=== PATIENT | female | born 1995 | race Caucasian/White ===

== ENCOUNTER 2018-09-22 15:33 | Inpatient (IN) | payer MEDICAID, OTHER ==
[2018-09-22] MEDS ORDERED: Sodium Chloride 0.9% 1,000 ML IV STA (15:49)
--- NOTE | 2018-09-22 15:55 | ED PDOC ---
HPI: Psych/Substance Abuse Time Seen by Provider: 09/22/18 15:43 Chief Complaint (Nursing): Psychiatric Evaluation Chief Complaint (Provider): Ingestion of Tramadol ED Caveat: Uncooperative History Per: EMS History/Exam Limitations: other (uncooperative) Current Symptoms Are (Timing): Still Present Additional Complaint(s): 23 year old female presents to the ED via EMS s/p ingestion of an unknown amount of tramadol an unknown amount of time ago after her and her boyfriend broke up. Due to her uncooperative nature, history is limited. PMD: none provided Past Medical History Reviewed: Unable To Obtain Vital Signs: Last Vital Signs Temp 97.2 F L 09/22/18 15:36 Pulse 125 H 09/22/18 15:36 Resp 16 09/22/18 15:36 BP 126/87 09/22/18 15:36 Pulse Ox 100 09/22/18 15:36 - Family History Family History: States: Unknown Family Hx - Allergies Allergies/Adverse Reactions: Allergies Allergy/AdvReac Type Severity Reaction Status Date / Time Unobtainable Allergy Verified 09/22/18 15:47 Review of Systems Review Of Systems: ROS cannot be obtained secondary to pt's inabilty to answer questions. Physical Exam - Reviewed Nursing Documentation Reviewed: Yes Vital Signs Reviewed: Yes - Physical Exam Appears: Positive for: No Acute Distress Head Exam: Positive for: ATRAUMATIC, NORMOCEPHALIC Skin: Positive for: Normal Color. Negative for: Rash Eye Exam: Positive for: Normal appearance, EOMI, PERRL ENT: Positive for: Normal ENT Inspection Neck: Positive for: Normal, Painless ROM, Supple Cardiovascular/Chest: Positive for: Tachycardia Respiratory: Positive for: Normal Breath Sounds. Negative for: Respiratory Distress Gastrointestinal/Abdominal: Positive for: Normal Exam, Soft. Negative for: Tenderness Back: Positive for: Normal Inspection Extremity: Positive for: Normal ROM. Negative for: Deformity, Swelling Neurologic/Psych: Positive for: Mood/Affect (uncooperative), Other (lethargic, but arousable and responsive to painful stimuli). Negative for: Motor/Sensory Deficits - Laboratory Results Result Diagrams: 09/22/18 15:58 09/22/18 15:58 - ECG O2 Sat by Pulse Oximetry: 100 (RA) Pulse Ox Interpretation: Normal Medical Decision Making Medical Decision Making: Time: 1548 Initial Impression: ingestion of unknown quantity of tramadol Initial Plan: --EKG --Acetaminophen --Alcohol serum --CMP --Drug screening --Salicylate --U-preg --U-dip --CBC with differential --Prothrombin time --CXR --IV fluids Medically stable for psychiatric admission Poison control consulted and in agreement Scribe Attestation: Documented by Kathie Montoya acting as a scribe for Timothy Peck MD. Provider Scribe Attestation: All medical record entries made by the Scribe were at my direction and personally dictated by me. I have reviewed the chart and agree that the record accurately reflects my personal performance of the history, physical exam, medical decision making, and the department course for this patient. I have also personally directed, reviewed, and agree with the discharge instructions and disposition. Disposition - Clinical Impression Clinical Impression: Depression, Suicide attempt - Patient ED Disposition Is Patient to be Admitted: Yes - Disposition Disposition Time: 18:12 Condition: FAIR Forms: vzaar ([place]) - Pt Status Changed To: Hospital Disposition Of: Inpatient - Admit Certification Admit to Inpatient:: After my assessment, the patient will require hosp italization for at least two midnights. This is because of the severity of symptoms shown, intensity of services needed, and/or the medical risk in this patient being treated as an outpatient. - POA Present On Arrival: None
[2018-09-22 16:02] LABS: BASO % 0.5 % (0.0-2.0); EOS # 0.1 K/uL (0.0-0.7); EOS % 0.9 % (0.0-4.0); HEMOGLOBIN 13.9 g/dL (12.0-16.0); LYMPH # 2.4 K/uL (1.0-4.3); LYMPH % 27.1 % (20.0-40.0); MEAN CELL VOLUME 91.8 fl (81.0-99.0); MEAN CORPUSCULAR HEMOGLOBIN 31.3 pg (27.0-31.0); MEAN CORPUSCULAR HGB CONC 34.1 g/dL (33.0-37.0); MEAN PLATELET VOLUME 8.4 fl (7.2-11.7); MONO # 0.8 K/uL (0.0-0.8); MONO % 8.6 % (0.0-10.0); NEUT # 5.6 K/uL (1.8-7.0); NEUT % 62.9 % (50.0-75.0); RBC 4.44 Mil/uL (3.80-5.20); RED CELL DISTRIBUTION WIDTH 12.7 % (11.5-14.5); WHITE BLOOD COUNT 8.9 K/uL (4.8-10.8)
[2018-09-22 16:14] LABS: INR 1.2; PROTHROMBIN TIME 13.1 Seconds (9.8-13.1)
[2018-09-22 16:20] LABS: ALB/GLOB RATIO 1.3 (1.0-2.1); ALBUMIN 4.9 g/dL (3.5-5.0); ALT/SGPT 34 U/L (9-52); AST/SGOT 33 U/L (14-36); BLOOD UREA NITROGEN 8 mg/dl (7-17); CALCIUM 9.7 mg/dL (8.4-10.2); GFR NON-AFRICAN AMERICAN > 60
[2018-09-22] MEDS ORDERED: Potassium Chloride 20 mEq 100 ML IVPB ONE (16:23)
[2018-09-22 16:29] LABS: PHENCYCLIDINE, UR NEGATIVE (NEGATIVE)
[2018-09-22 16:32] LABS: BARBITURATES, UR NEGATIVE (NEGATIVE); BENZODIAZEPINES, UR NEGATIVE (NEGATIVE); OPIATES, UR NEGATIVE (NEGATIVE)
[2018-09-22 16:50] LABS: ACETAMINOPHEN < 10.0 ug/ml (10.0-30.0); SALICYLATE < 1.0 mg/dl
[2018-09-22 20:31] VITALS: O2SAT 98
[2018-09-22] MEDS ORDERED: Magnesium Hydroxide Susp 30 ml UD PO PRN (21:42)
[2018-09-22] MEDS ORDERED: Alum-Mag Hydrox-Simethicone Susp (30 mL) PO PRN (21:42)
[2018-09-22] MEDS ORDERED: DiphenhydrAMINE 50 mg/ml Inj IM PRN (21:42)
--- NOTE | 2018-09-22 22:42 | PCM.BM ---
<Tiffanie Dominguez - Last Filed: 09/22/18 22:40> Treatment Plan Problems - Problems identified on initial assessmt Self Harm Date Initiated: 09/22/18 Time Initiated: 22:41 Assessment reference: NA Status: Active Hopelessness/Helplessness Date Initiated: 09/22/18 Time Initiated: 22:41 Assessment reference: NA Status: Active Altered Sleep Patterns Date Initiated: 09/22/18 Time Initiated: 22:42 Assessment reference: NA Status: Active Ineffective Coping Date Initiated: 09/22/18 Time Initiated: 22:43 Assessment reference: NA Status: Active Treatment assets and liabiliti Patient Assests: cooperative, self-reliant, ADL independent, physically healthy, negotiates basic needs, cognitively intact Patient Liabilities: poor support system, relationship conflicts - Milieu Protocol Maintain good personal hygiene: daily Encourage regular showers, other Remind patient to perform daily oral care (prn), other Assist patient to perform ADL's (prn) Conduct patient checks and document Observation sheet: Q15 minutes Maintain personal safety: every shift Educate patient to report safety concerns to staff, every shift Monitor environment for contraband/sharps Medication safety: Monitor for expected outcome, potential side effects: every shift, Assess barriers to learning: every shift, Assess readiness for medication education: every shift <Alecia Brady - Last Filed: 09/25/18 10:38> Treatment assets and liabiliti Patient Assests: adapts well, cooperative, self-reliant (pt. dependent on childrens father and his family) Patient Liabilities: poor support system, relationship conflicts Family Contact Family involvement: Famliy/SO not involved Family contact: Patient declines to allow family contact at present (Pt. reports limited family/social supports. Pt. reports being visited by bf's family but declined to sign consent for them.) - Goals for Treatment Patient goals for treatment: Patient to continue stabilization on 3NP through medication management and group/supportive therapy to address sxs of depression and eliminate SI. Patient to be encouraged to attend groups regularly to promote self-awareness, coping skills, and improve insight, compliance, and self-esteem. Patient to be provided with referral for appropriate level of aftercare to reduce risk of future hospitalizations and ensure safety in the community. Pt. identified wanting to get better to be able to care for her children and bfs family upon discharge. Pt. open to the benefits of outpatient therapy but somewhat ambivalent regarding medication management. Discharge/Continuing Care - Education Needs Education Needs: Patient Medication, Patient Diagnosis/Disease Process, Patient Coping Skills, Patient Community resources, Patient Aftercare Safety Plan - Discharge Discharge Criteria: Tolerates medication w/o severe side effects, Free of Suicidal thoughts, Normal sleep pattern Discharge to:: Home, With Family (pt. resides with bf who recently ended the relationship ; pt. reports plan to return) - Treatment Team Participation Patient/Family/SO Statement: 09/25/18 10:40 Patient attended tx team on 09/24 to discuss progress on 3NP and tx goals. Pt. reported improvement in sxs of depression since admission. Pt. reported better sleep. Pt. continued to report feelings of sadness, guilt, and anger. Pt. denied SI/HI and was able to contract for safety. Pt. presented with depressed affect and fair eye contact. Pt. presents as ambivalent regarding precursors to hospitalization. Pt. superficially motivated for tx but agreeable to outpatient mental health referrals. Pt. somewhat socially withdrawn but visible on 3NP and is able to appropriately socialize with peers with prompting. Discussed with Family/SO: No Was Patient/Family/SO present at Treatment Team Meeting: Yes <Vianca Carroll - Last Filed: 09/26/18 16:39> - Diagnosis (1) Depression Status: Acute Interventions: psychotherapy, pharmacotherapy 09/26/18 16:38
--- NOTE | 2018-09-23 10:00 | RAD ---
Date of service: 09/22/2018 HISTORY: cough COMPARISON: No prior. FINDINGS: LUNGS: No acute pulmonary disease appreciated. Rounded density at the inferior right chest in the plane of the 5th intercostal space likely reflects nipple. PLEURA: No significant pleural effusion identified, no pneumothorax apparent. CARDIOVASCULAR: No aortic atherosclerotic calcification present. Normal cardiac size. No pulmonary vascular congestion. OSSEOUS STRUCTURES: No significant abnormalities. VISUALIZED UPPER ABDOMEN: Normal. OTHER FINDINGS: None. IMPRESSION: No acute cardiopulmonary disease appreciable.
[2018-09-23 10:15] LABS: BLOOD UREA NITROGEN 6 mg/dl (7-17); CALCIUM 9.1 mg/dL (8.4-10.2); GFR NON-AFRICAN AMERICAN > 60; HDL CHOLESTEROL 39 MG/DL (30-70); LDL CHOLESTEROL 56 mg/dL (0-129); T4 8.66 ug/dl (5.5-11.0)
--- NOTE | 2018-09-23 12:07 | CP.PCM.CON ---
History of Present Illness - History of Present Illness History of Present Illness: 23 yo female admittedly took 6 tabs of Tramadol after breaking up with her boyfriend. Review of Systems - Review of Systems All systems: reviewed and no additional remarkable complaints except (aside from those mentioned above, 12 point system review were negative by me) Past Patient History - Past Social History Smoking Status: Never Smoked Chewing Tobacco Use: No Cigar Use: No Alcohol: Occasional Drugs: Denies - CARDIAC Hx Cardiac Disorders: No - PULMONARY Hx Respiratory Disorders: No Hx Tuberculosis: No - NEUROLOGICAL Hx Neurological Disorder: No HX Cerebrovascular Accident: No Hx Seizures: No - HEENT Hx HEENT Problems: No - RENAL Hx Chronic Kidney Disease: No - ENDOCRINE/METABOLIC Hx Endocrine Disorders: No - HEMATOLOGICAL/ONCOLOGICAL Hx Blood Disorders: No Hx Cancer: No Hx Human Immunodeficiency Virus (HIV): No - INTEGUMENTARY Hx Dermatological Problems: No - MUSCULOSKELETAL/RHEUMATOLOGICAL Hx Musculoskeletal Disorders: No - GASTROINTESTINAL Hx Gastrointestinal Disorders: No - GENITOURINARY/GYNECOLOGICAL Hx Genitourinary Disorders: No Hx Sexually Transmitted Disorders: No - PSYCHIATRIC Hx Depression: Yes Hx Emotional Abuse: Yes Hx Substance Use: No - SURGICAL HISTORY Hx Surgeries: No - ANESTHESIA Hx Anesthesia: No Meds Allergies/Adverse Reactions: Allergies Allergy/AdvReac Type Severity Reaction Status Date / Time No Known Allergies Allergy Verified 09/22/18 23:22 - Medications Medications: Current Medications Acetaminophen (Tylenol 325mg Tab) 650 mg PO Q4 PRN PRN Reason: pain 4-7 Last Admin: 09/23/18 11:52 Dose: 650 mg Al Hydrox/Mg Hydrox/Simethicone (Maalox Plus 30 Ml) 30 ml PO Q4 PRN PRN Reason: Dyspepsia Diphenhydramine HCl (Benadryl) 50 mg IM Q6 PRN PRN Reason: Extrapyramidal S/S Unable PO Diphenhydramine HCl (Benadryl) 50 mg PO Q6 PRN PRN Reason: Extrapyramidal Symptoms Haloperidol (Haldol) 5 mg PO Q4 PRN PRN Reason: Agitation Haloperidol Lactate (Haldol) 5 mg IM Q4 PRN PRN Reason: Agitation, Unable to Take PO Lorazepam (Ativan) 2 mg IM Q8 PRN PRN Reason: Anxiety/Agitation,Unable PO Lorazepam (Ativan) 1 mg PO Q6 PRN PRN Reason: Anxiety/Agitation Magnesium Hydroxide (Milk Of Magnesia) 30 ml PO HS PRN PRN Reason: Constipation Trazodone HCl (Desyrel) 50 mg PO HS PRN PRN Reason: Sleep Last Admin: 09/22/18 22:34 Dose: 50 mg Physical Exam - Constitutional Appears: No Acute Distress - Head Exam Head Exam: ATRAUMATIC - Eye Exam Eye Exam: absent: Scleral icterus - ENT Exam ENT Exam: Mucous Membranes Moist - Neck Exam Neck exam: Negative for: Meningismus - Respiratory Exam Respiratory Exam: absent: Rales, Rhonchi, Wheezes, Respiratory Distress - Cardiovascular Exam Cardiovascular Exam: REGULAR RHYTHM, +S1, +S2 - GI/Abdominal Exam GI & Abdominal Exam: Soft. absent: Tenderness - Rectal Exam Rectal Exam: Deferred - Extremities Exam Extremities exam: Negative for: pedal edema - Back Exam Back exam: NORMAL INSPECTION - Neurological Exam Neurological exam: Alert, Oriented x3 - Psychiatric Exam Psychiatric exam: Normal Affect - Skin Skin Exam: Dry, Intact Results - Vital Signs Recent Vital Signs: Last Vital Signs Temp 98.1 F 09/23/18 09:00 Pulse 82 09/23/18 09:00 Resp 18 09/23/18 09:00 BP 100/64 09/23/18 09:00 Pulse Ox 98 09/22/18 20:27 - Labs Result Diagrams: 09/22/18 15:58 09/23/18 09:30 Labs: Laboratory Results - last 24 hr 09/22/18 09/22/18 09/22/18 15:58 15:58 15:58 WBC 8.9 RBC 4.44 Hgb 13.9 Hct 40.8 MCV 91.8 MCH 31.3 H MCHC 34.1 RDW 12.7 Plt Count 287 MPV 8.4 Neut % (Auto) 62.9 Lymph % (Auto) 27.1 [place] % (Auto) 8.6 Eos % (Auto) 0.9 Baso % (Auto) 0.5 Neut # (Auto) 5.6 Lymph # (Auto) 2.4 [place] # (Auto) 0.8 Eos # (Auto) 0.1 Baso # (Auto) 0.0 PT INR Sodium 140 Potassium 3.1 L Chloride 102 Carbon Dioxide 21 L Anion Gap 20 BUN 8 Creatinine 0.7 Est GFR ( Amer) > 60 Est GFR (Non-Af Amer) > 60 Random Glucose 160 H Hemoglobin A1c Calcium 9.7 Total Bilirubin 0.5 AST 33 ALT 34 Alkaline Phosphatase 75 Total Protein 8.5 H Albumin 4.9 Globulin 3.6 Albumin/Globulin Ratio 1.3 Triglycerides Cholesterol LDL Cholesterol Direct HDL Cholesterol Thyroxine (T4) TSH 3rd Generation Salicylates < 1.0 Urine Opiates Screen Urine Methadone Screen Acetaminophen < 10.0 L Ur Barbiturates Screen Ur Phencyclidine Scrn Ur Amphetamines Screen U Benzodiazepines Scrn U Oth Cocaine Metabols U Cannabinoids Screen Alcohol, Quantitative 128 H 09/22/18 09/22/18 09/23/18 15:58 16:03 09:30 WBC RBC Hgb Hct MCV MCH MCHC RDW Plt Count MPV Neut % (Auto) Lymph % (Auto) [place] % (Auto) Eos % (Auto) Baso % (Auto) Neut # (Auto) Lymph # (Auto) [place] # (Auto) Eos # (Auto) Baso # (Auto) PT 13.1 INR 1.2 Sodium 140 Potassium 4.1 Chloride 105 Carbon Dioxide 25 Anion Gap 14 BUN 6 L Creatinine 0.6 L Est GFR ( Amer) > 60 Est GFR (Non-Af Amer) > 60 Random Glucose 97 Hemoglobin A1c Calcium 9.1 Total Bilirubin AST ALT Alkaline Phosphatase Total Protein Albumin Globulin Albumin/Globulin Ratio Triglycerides 84 Cholesterol 92 LDL Cholesterol Direct 56 HDL Cholesterol 39 Thyroxine (T4) 8.66 TSH 3rd Generation 1.42 Salicylates Urine Opiates Screen Negative Urine Methadone Screen Negative Acetaminophen Ur Barbiturates Screen Negative Ur Phencyclidine Scrn Negative Ur Amphetamines Screen Negative U Benzodiazepines Scrn Negative U Oth Cocaine Metabols Negative U Cannabinoids Screen Negative Alcohol, Quantitative 09/23/18 09:30 WBC RBC Hgb Hct MCV MCH MCHC RDW Plt Count MPV Neut % (Auto) Lymph % (Auto) [place] % (Auto) Eos % (Auto) Baso % (Auto) Neut # (Auto) Lymph # (Auto) [place] # (Auto) Eos # (Auto) Baso # (Auto) PT INR Sodium Potassium Chloride Carbon Dioxide Anion Gap BUN Creatinine Est GFR ( Amer) Est GFR (Non-Af Amer) Random Glucose Hemoglobin A1c 5.4 Calcium Total Bilirubin AST ALT Alkaline Phosphatase Total Protein Albumin Globulin Albumin/Globulin Ratio Triglycerides Cholesterol LDL Cholesterol Direct HDL Cholesterol Thyroxine (T4) TSH 3rd Generation Salicylates Urine Opiates Screen Urine Methadone Screen Acetaminophen Ur Barbiturates Screen Ur Phencyclidine Scrn Ur Amphetamines Screen U Benzodiazepines Scrn U Oth Cocaine Metabols U Cannabinoids Screen Alcohol, Quantitative Assessment & Plan (1) Suicide attempt Status: Acute Comment: psyche will be managing
--- NOTE | 2018-09-23 13:04 | PCM.PSYCH ---
Initial Psychiatric Evaluation - Initial Psychiatric Evaluation Type of Admission: Voluntary Legal Status: Guardian Chief Complaint (in patient's own words): i was depressed Patient's Reaction to Hospitalization: pt is tearful History of Present Illness and Precipitating Events: This is the ist [employer] admission for this 23 yr old female with h/o depression in past related to medical illness of the father and made a suicidal attempt by attempting to hang herself and admitted this time because pt has been inceasingly depressed because of the father of her children told her that he is moving in with the new girl friend and pt took overdise on tramodolol in suicidal attempt and EMS called by a family member and pt brought to hospital for admission. Current Medications: Active Medications Generic Name Dose Route Start Last Admin Trade Name Freq PRN Reason Stop Dose Admin Acetaminophen 650 mg 09/22/18 21:42 09/23/18 11:52 Tylenol 325mg Tab PO 650 mg Q4 PRN Administration pain 4-7 Al Hydrox/Mg Hydrox/Simethicone 30 ml 09/22/18 21:42 Maalox Plus 30 Ml PO Q4 PRN Dyspepsia Diphenhydramine HCl 50 mg 09/22/18 21:42 Benadryl IM Q6 PRN Extrapyramidal S/S Unable PO Diphenhydramine HCl 50 mg 09/22/18 21:42 Benadryl PO Q6 PRN Extrapyramidal Symptoms Haloperidol 5 mg 09/22/18 21:42 Haldol PO Q4 PRN Agitation Haloperidol Lactate 5 mg 09/22/18 21:42 Haldol IM Q4 PRN Agitation, Unable to Take PO Lorazepam 2 mg 09/22/18 21:42 Ativan IM Q8 PRN Anxiety/Agitation,Unable PO Lorazepam 1 mg 09/22/18 21:42 Ativan PO Q6 PRN Anxiety/Agitation Magnesium Hydroxide 30 ml 09/22/18 21:42 Milk Of Magnesia PO HS PRN Constipation Trazodone HCl 50 mg 09/22/18 21:42 09/22/18 22:34 Desyrel PO 50 mg HS PRN Administration Sleep Past Psychiatric History - Past Psychiatric History Previous Treatment History: None History of Abuse: denies History of ETOH/Drug Use: denies History of Family Illness: denies Pertinent Medical Hx (Current Medical&Sleep Prob, Allergies): Allergies Allergy/AdvReac Type Severity Reaction Status Date / Time No Known Allergies Allergy Verified 09/22/18 23:22 No Known Home Med 09/22/18 s/p overdose on tramidolol Review of Systems - Review of Systems All systems: reviewed and no additional remarkable complaints except Mental Status Examination - Personal Presentation Personal Presentation: Looks stated age - Affect Affect: Constricted - Motor Activity Motor Activity: Other - Reliability in Providing Information Reliability in Providing Information: Fair - Speech Speech: Relevant - Mood Mood: Depressed, Anxious - Formal Thought Process Formal Thought Process: No Impairment - Obsessions/Compulsions Obsessions: No Compulsions: No - Cognitive Functions Orientation: Person, Place, Situation Sensorium: Alert Attention/Concentration: Easily distracted Abstract Thinking: [place] Estimate of Intelligence: Average Judgement: Imparied, as evidence by: Poor judgement, Imparied, as evidence by: Lack of insight into illness Memory: Recent intact, as evidence by: Ability to recall events of the day, Remote intact, as evidenced by: Other - Risk Risk: Diminished functioning - Strength & Assets Inventory Strength & Assets Inventory: Family support DSM 5 DX - DSM 5 DSM 5 Diagnosis: Major depression,recurrent severe adjustment disorder - Recommended/Plan of Treatment Treatment Recommendations and Plan of Treatment: The pt has agreed to start lexapro 5 mg hs and will further titrate to stabilize the pt. will engage pt in therapy and groups. collateral info from family.
--- NOTE | 2018-09-23 19:00 | CARD ---
APPROVED REPORT Date of service: 09/22/2018 EKG Measurement Heart [id number] <Conclusion> Normal sinus rhythm Normal ECG
--- NOTE | 2018-09-24 12:43 | PCM.PYCHPN ---
Psychiatric Progress Note - Psychiatric Progress Note Patient seen today, length of contact: pt evaluated discussed with team chart reviewed Patient Chief Complaint: it is hard to get over a 7years relation Problems Identified/Issues Discussed: pt evaluated with treatment team, reported having mixed feelings including sadness, anger and guilt , presenting with tearful affect, discussed with patient stages of grief and possible mourning of the relation with the father of her children, CBT provided, discussed with patient alternative coping skills other than self harm, patient denied any current thoughts of self harm, stating that she has to be strong for her children, discussed importance of referral to therapy on discharge , no reported side effects of lexapro, discussed increasing dose pt reported improved sleep with trazodone DSM 5 Symptoms Update: major depression recurrent severe Medication Change: Yes (increase lexapro) Medical Record Reviewed: Yes Mental Status Examination - Cognitive Function Orientation: Person, Place, Situation Attention: WNL Concentration: WNL Association: WNL Fund of Knowledge: WN Decription of patient's judgement and insights: partial insight , fair judgment - Mood Mood: Depressed, Anxious - Affect Affect: Constricted - Speech Speech: Soft - Formal Thought Process Formal Thought Process: No Impairment - Suicidal Ideation Suicidal Ideation: No - Homicidal Ideation Homicidal Ideation: No Goal/Treatment Plan - Goal/Treatment Plan Need for Continued Stay: Severe depression anxiety, Discharge may exacerbated symptoms Progress Toward Problem(s) and Goals/Treatment Plan: increase lexapro to 10mg qhs trazodone 50mg qhs CBT group and supportive therapy
[2018-09-24] MEDS ORDERED: Influenza Vaccine (5 YR UP)/PF 60 MCG/0.5 ML SYR IM ONE (13:11)
--- NOTE | 2018-09-25 13:25 | PCM.PYCHPN ---
Psychiatric Progress Note - Psychiatric Progress Note Patient seen today, length of contact: pt evaluated discussed with team chart reviewed Patient Chief Complaint: I will try to be strong for my children Problems Identified/Issues Discussed: pt evaluated reported feeling less depressed, affect noted less constricted, pt stated was visited by grandmother and father of her children which made her feel better, continues to grieve the relation, pt however reported she would never hurt herself as she cares for her children, CBT provided, pt able to verbalize healthier coping skills other than self harm, agrees to start outpatient therapy, no reported side effects of lexapro DSM 5 Symptoms Update: major depression Medication Change: No (increase lexapro) Medical Record Reviewed: Yes Mental Status Examination - Cognitive Function Orientation: Person, Place, Situation Attention: WNL Concentration: WNL Association: WNL Fund of Knowledge: WN Decription of patient's judgement and insights: partial insight , fair judgment - Mood Mood: Depressed, Anxious - Affect Affect: Constricted - Speech Speech: Soft - Formal Thought Process Formal Thought Process: No Impairment - Suicidal Ideation Suicidal Ideation: No - Homicidal Ideation Homicidal Ideation: No Goal/Treatment Plan - Goal/Treatment Plan Need for Continued Stay: Severe depression anxiety, Discharge may exacerbated symptoms Progress Toward Problem(s) and Goals/Treatment Plan: lexapro to 10mg qhs trazodone 50mg qhs CBT group and supportive therapy
[2018-09-26 09:08] VITALS: RESP 17
--- NOTE | 2018-09-26 16:50 | PCM.PYCHPN ---
Psychiatric Progress Note - Psychiatric Progress Note Patient seen today, length of contact: pt evaluated discussed with team chart reviewed Patient Chief Complaint: I am doing better Problems Identified/Issues Discussed: pt evaluated reported better mood, presenting with brighter ,attending groups and interacting with staff and other patients, no reported side effects of medications , CBT provided, pt able to verbalize healthier coping skills other than self harm, agrees to start outpatient therapy, denied any current thoughts of self harm DSM 5 Symptoms Update: major depression recurrent Medication Change: No (increase lexapro) Medical Record Reviewed: Yes Mental Status Examination - Cognitive Function Orientation: Person, Place, Situation Attention: WNL Concentration: WNL Association: [facility] Fund of Knowledge: [facility] Decription of patient's judgement and insights: partial insight , fair judgment - Mood Mood: Anxious - Affect Affect: Constricted - Speech Speech: Soft - Formal Thought Process Formal Thought Process: No Impairment - Suicidal Ideation Suicidal Ideation: No - Homicidal Ideation Homicidal Ideation: No Goal/Treatment Plan - Goal/Treatment Plan Need for Continued Stay: Severe depression anxiety, Discharge may exacerbated symptoms Progress Toward Problem(s) and Goals/Treatment Plan: lexapro to 10mg qhs trazodone 50mg qhs CBT group and supportive therapy
[2018-09-27 09:29] VITALS: BP 90/59; PULSE 85; TEMP 96.9
== END 2018-09-27 16:14 | disposition home or self-care (01) | DRG 751 ==
LOC: H.ER 15:33 → H.ERHOLD 18:07 → H.PSYCH 21:37
PROVIDERS: ADMIT Psychiatry & Neurology Psychiatry; ATTEND Psychiatry & Neurology Psychiatry
PROC: GZHZZZZ Group Psychotherapy (ICD-10-PCS; principal; 2018-09-22)
PROC: GZ58ZZZ Individual Psychotherapy, Cognitive-Behavioral (ICD-10-PCS; 2018-09-22)
PROC: 3E02340 Introduction of Influenza Vaccine into Muscle, Percutaneous Approach (ICD-10-PCS; 2018-09-24)
DX: F33.2 Major depressive disorder, recurrent severe without psychotic features (principal); R45.851 Suicidal ideations; F43.20 Adjustment disorder, unspecified; Z23 Encounter for immunization